=== PATIENT | female | born 1965 | race Caucasian/White ===

== ENCOUNTER 2017-04-27 21:25 | Emergency (ER) | payer BC ==
[~2017-04-27 21:25] MED LIST: ISOVUE-370 76%-LOCM 1 ML ONE; Iopamidol 370 76% 50 ML VIAL FS ONE
[2017-04-27] MEDS ORDERED: Ondansetron HCl/PF 4 MG/2 ML Vial ONE (21:59)
[2017-04-27] MEDS ORDERED: Fentanyl 100 MCG/2 ML VIAL ONE (21:59)
--- NOTE | 2017-04-27 22:16 | RAD ---
FRONTAL RADIOGRAPH CHEST PORTABLE UPRIGHT 04/27/17 COMPARISON: None. HISTORY: Abdominal pain and chest pain. FINDINGS: No pneumothorax or pleural fluid. No focal consolidation or alveolar edema. Heart and mediastinal con tour is unremarkable. IMPRESSION: No acute findings. POS: [facility]
[2017-04-27 22:45] LABS: #Lymphocytes 0.4 thou/uL (1.20-3.40); #Monocytes 0.5 thou/uL (0.11-0.59); #Neutrophils 11.7 thou/uL (1.40-6.50); %Basophils 0.2 % (0.0-1.0); %Eosinophils 0.3 % (0.0-10.0); %Lymphocytes 3.3 % (21.0-51.0); %Monocytes 4.1 % (0.0-10.0); Hematocrit 45.3 % (36.0-47.0); Mean Platelet Volume 8.7 fL (7.4-10.4); Red Blood Cell (RBC) Count 4.79 mill/uL (4.20-5.40); White Blood Cell (WBC) Count 12.7 thou/uL (4.8-10.8)
[2017-04-27 22:52] LABS: Lactic Acid - Sepsis 1.6 mmol/L (0.5-2.2)
[2017-04-27 22:57] LABS: ALT (SGPT) 24 U/L (8-55); AST (SGOT) 18 U/L (5-34); Alkaline Phosphatase 51 U/L (40-150); Anion Gap 12 mmol/L (10-20); BUN (Urea Nitrogen) 16 mg/dL (9.8-20.1); Bilirubin, Total 1.2 mg/dL (0.2-1.2); Calc. Creatinine Clearance 0 mL/min (70-130); Calcium 8.9 mg/dL (7.8-10.44); Carbon Dioxide 24 mmol/L (22-29); Chloride 106 mmol/L (98-107); Estimated GFR-MDRD 77; Globulin 2.6 g/dL (2.4-3.5); Lipase 10 U/L (8-78); Protein, Total 6.6 g/dL (6.0-8.3)
[2017-04-28] MEDS ORDERED: Ondansetron HCl/PF 4 MG/2 ML Vial ONE
[2017-04-28] MEDS ORDERED: Fentanyl 100 MCG/2 ML VIAL ONE
--- NOTE | 2017-04-28 00:04 | CT ---
CT OF ABDOMEN AND PELVIS 04/27/17 COMPARISON: 03/23/15 HISTORY: Vomiting and diarrhea, abdominal pain. TECHNIQUE: Serial axial CT imaging is obtained at 5 mm intervals from the lung bases through the pubic symphysis with intravenous and oral contrast. Coronal reformatted imaging obtained. FINDINGS: Imaged lung bases are unremarkable. Cholecystectomy clips are present. No free intraperitoneal air. The liver, spleen, pancreas, adrenal glands and kidneys are unremarkable. There is mild hazy increase d density within the mesenteric fat, similar when compared to the prior exam. There are a few mildly prominent mesenteric nodes as well, also similar when compared to the prior imaging. No evidence for bowel inflammatory change or bowel obstruction. No retroperitoneal adenopathy. There is mild atherosclerotic calcification of the infrarenal abdomina l aorta. The osseous structures demonstrate no acute findings. IMPRESSION: Stable mild nate mesentery with no acute findings seen. POS: [facility]
[2017-04-28 01:38] LABS: Bilirubin Negative (Negative); Blood, Urine Negative (Negative); Glucose, Urine (Dipstick) Negative (Negative); Ketone, Urine Trace mg/dL (Negative); Nitrite Negative (Negative); Protein, Urine (Dipstick) Negative (Neg-Trace); Urobilinogen 0.2 mg/dL (0.2-1.0)
[2017-04-28] MEDS ORDERED: Promethazine HCl 25 MG/ML VIAL ONE (02:00)
--- NOTE | 2017-04-30 13:05 | EKG ---
Test Reason : NV Blood Pressure : / mmHG Vent. Rate : 093 BPM Atrial Rate : 093 BPM P-R Int : 120 ms QRS Dur : 078 ms QT Int : 366 ms P-R-T Axes : 073 017 049 degrees QTc Int : 455 ms Normal sinus rhythm Q in III Normal ECG Confirmed by MALOU COREA ([id number]), acquisitions editor JAVIER APODACA ([id number]) on 04/30/2017 1:05:46 PM Referred By: Confirmed By:MALOU COREA
== END 2017-04-28 02:34 | disposition home or self-care (01) ==
LOC: ERS 21:25
DX: K29.70 Gastritis, unspecified, without bleeding (principal); E86.0 Dehydration
CPT/HCPCS: 36415; 71010; 74177; 80053; 81003; 83605; 83690; 85025; 93005; 96361; 96374; 96375; 96376; J2405; J2550; J3010

== ENCOUNTER 2018-02-18 08:13 | Outpatient (CLI) | payer BC | END 2018-02-18 08:14 | disposition home or self-care (01) | LOC: BICMAMMO 08:13 | PROVIDERS: ATTEND Family Medicine | DX: Z12.31 Encounter for screening mammogram for malignant neoplasm of breast (principal) | CPT/HCPCS: 77063; 77067 ==

== ENCOUNTER 2018-11-09 17:07 | Emergency (ER) | payer BC ==
--- NOTE | 2018-11-09 17:45 | RAD ---
XR Nasal Bones STANDARD History: Nasal fracture Comparison: None. Findings: No displaced nasal bone fracture is appreciated. Orbital floors are intact. Impression: No displaced nasal bone fracture. CT has greater sensitivity.
[2018-11-09] MEDS ORDERED: Ibuprofen 200 MG TAB ONE (18:44)
--- NOTE | 2018-11-09 19:17 | CT ---
CT Brain WO Con History: Fall Comparison: None. Findings: No acute hemorrhage or infarct. No midline shift or mass effect. Ventricular size and extra -axial CSF spaces are normal. Calvarium is intact. Paranasal sinuses and mastoids are clear. Impression: No acute intracranial abnormality.
--- NOTE | 2018-11-09 19:23 | CT ---
CT Facial Bones WO Con History: Fall. Trauma. Comparison: None. Findings: Paranasal sinuses are clear. Nondisplaced fracture left nasal bone at the nasal bridge. The medial orbital palomares, lateral orbital palomares, orbital floors, orbital roofs are intact. No subluxation of the temporal mandibular joints. Mandible is intact. Maxilla is intact. Globes are normal. Impression: Nondisplaced fracture left nasal bone near the nasal bridge.
== END 2018-11-09 19:38 | disposition home or self-care (01) ==
LOC: ERS 17:07
DX: S01.21XA Laceration without foreign body of nose, initial encounter (principal); R51 Headache; J34.89 Other specified disorders of nose and nasal sinuses; Z79.899 Other long term (current) drug therapy; W01.10XA Fall on same level from slipping, tripping and stumbling with subsequent striking against unspecified object, initial encounter
CPT/HCPCS: 70160; 70450; 70486

== ENCOUNTER 2020-01-19 15:54 | Outpatient (CLI) | payer BC | END 2020-01-19 15:55 | disposition home or self-care (01) | LOC: CTENTCT 15:54 | PROVIDERS: ATTEND Specialist | DX: R09.81 Nasal congestion (principal) | CPT/HCPCS: 70486 ==

== ENCOUNTER 2020-02-10 09:54 | Outpatient (CLI) | payer BC ==
--- NOTE | 2020-02-10 13:52 | MMO ---
Bilateral MAMMO Bilat Screen [facility]. CLINICAL HISTORY: Patient is 54 years old and is seen for screening. The patient has no family history of breast cancer. The patient has no personal history of cancer. VIEWS: The views performed were: bilateral craniocaudal with tomosynthesis and bilateral mediolateral oblique with tomosynthesis. FILMS COMPARED: The present examination has been compared to prior imaging studies performed at [facility] on 06/07/2016 and 02/18/2018, and at [facility] on 01/14/2015. This study has been interpreted with the assistance of computer-aided detection. MAMMOGRAM FINDINGS: There are scattered fibroglandular densities. There are no suspicious masses, suspicious calcifications, or new areas of architectural distortion. IMPRESSION: THERE IS NO MAMMOGRAPHIC EVIDENCE OF MALIGNANCY. A ROUTINE FOLLOW-UP MAMMOGRAM IN 1 YEAR IS RECOMMENDED. THE RESULTS OF THIS EXAM WERE SENT TO THE PATIENT. ACR BI-RADS Category 1 - Negative MAMMOGRAPHY NOTE: 1. A negative mammogram report should not delay a biopsy if a dominant of clinically suspicious mass is present. 2. Approximately 10% to 15% of breast cancers are not detected by mammography. 3. Adenosis and dense breasts may obscure an underlying neoplasm. Reported by: ROCHELLE CASEY MD Electonically Signed: [id number]
== END 2020-02-10 09:55 | disposition home or self-care (01) ==
LOC: BICMAMMO 09:54
PROVIDERS: ATTEND Family Medicine
DX: Z12.31 Encounter for screening mammogram for malignant neoplasm of breast (principal)
CPT/HCPCS: 77063; 77067

== ENCOUNTER 2022-03-22 12:56 | Outpatient (CLI) | payer BC | END 2022-03-22 12:57 | disposition home or self-care (01) | LOC: BICMAMMO 12:56 | PROVIDERS: ATTEND Family Medicine | DX: Z12.31 Encounter for screening mammogram for malignant neoplasm of breast (principal) | CPT/HCPCS: 77063; 77067 ==